=== PATIENT | male | born 1995 ===

== ENCOUNTER 2025-06-29 18:33 | Emergency (ER) | payer OTHER ==
[~2025-06-29] VITALS: Ht 170.2 cm; Wt 65.8 kg
[2025-06-29 19:10] VITALS: BP 105/71; O2SAT 100
== END 2025-06-29 20:01 | disposition left against medical advice (07) ==
LOC: ER 18:33
DX: S01.22XA Laceration with foreign body of nose, initial encounter (principal); W21.4XXA Striking against diving board, initial encounter; Y93.89 Activity, other specified; Y92.89 Other specified places as the place of occurrence of the external cause